=== PATIENT | female | born 2000 | race Caucasian/White ===

== ENCOUNTER 2019-04-24 17:05 | Emergency (ER) | payer MEDICAID, SELFPAY ==
[2019-04-24 17:06] VITALS: BP 128/80; PULSE 94; RESP 16; TEMP 36.5; O2SAT 98; BMI 24.1
--- NOTE | 2019-04-24 17:14 | ED.DCSUM_ITS ---
- ER Visit Summary Date of Service: 04/24/19 Chief Complaint: Right foot pain History of Present Illness: The patient is a 18 F who has right foot pain after an injury. Her foot was stepped on by horse this morning. Pain is worse when she walks on it. She noticed some ecchymosis to the distal foot. She used ice and ibuprofen which helped mildly but she was still concerned. No previous injuries or surgeries to this foot or ankle. Physical Examination: Vital signs are reviewed. Right foot exam reveals tenderness to the distal portion of the lateral foot. There is no fifth metatarsal pain. There is no ankle tenderness to palpation. She does have some ecchymosis to the distal foot. Test Results: Right foot x-rays interpreted by myself and radiologist as negative Emergency Department Course and Treatment: X-rays are negative for fracture. This is likely a contusion. She will continue ice and elevation at home. We will follow-up with PCP. Treatment Plan: [] Disposition: Discharge Impression: Right foot contusion This note was generated with [employer] dictation software. It may contain incorrect words, spelling, and punctuation that were not noted in review of the chart prior to signing
--- NOTE | 2019-04-24 17:20 | RAD_ITS ---
STUDY: X-RAY - RIGHT FOOT CLINICAL: Female, 18 years old. Right foot pain. TECHNIQUE: 3 view(s) of the foot. COMPARISON: None. FINDINGS: Normal talus, calcaneus, and tarsal bones. Normal visualized subtalar, talonavicular, calcaneocuboid, tarsal and tarsometatarsal articulations. Normal metatarsi. Normal metatarsophalangeal joint of the great toe. Normal tibial and fibular sesamoid bones. Normal interphalangeal joint of the great toe. Normal phalanges of the great toe. Normal second through fifth metatarsophalangeal joints. Normal interphalangeal joints and phalanges of the lesser toes. The soft tissue structures are unremarkable. RAD/Foot min 3 Views IMPRESSION: Normal x-ray examination of the foot. Electronically Signed: Colten Roy DO at 17:34 EDT Tel [phone], Service support ,
--- NOTE | 2019-04-24 17:42 | DCINST.ED_ITS ---
ED Disposition - Plan for ED Patient: Disposition: Home or Assisted Living Instructions: CONTUSION, Foot Referrals: [facility] Doctor,Out of [Primary Care Provider] -
--- NOTE | 2019-04-24 17:42 | ED.DEP ---
ED Disposition - Plan for ED Patient: Disposition: Home or Assisted Living Instructions: CONTUSION, Foot Referrals: [facility] Doctor,Out of [Primary Care Provider] -
== END 2019-04-24 17:48 | disposition home or self-care (01) ==
PROVIDERS: Emergency Provider Emergency Medicine
DX: S90.31XA Contusion of right foot, initial encounter (principal); W55.19XA Other contact with horse, initial encounter
CPT/HCPCS: 73630; 99282